=== PATIENT | female | born 1955 | race Caucasian/White ===

== ENCOUNTER 2019-02-20 02:12 | Inpatient (IN) | payer OTHER ==
[~2019-02-20] VITALS: Ht 162.6 cm; Wt 48.5 kg
--- NOTE | 2019-02-20 02:15 | NUR ---
PT BIB [facility] TO ER BED 4
[2019-02-20] MEDS ORDERED: fentaNYL 0.05 MG/ML VIAL IVP ONE (02:20)
[2019-02-20] MEDS ORDERED: NACL 0.9% 1,000 ML IV ONE (02:20)
[2019-02-20 02:33] VITALS: BP 214/82
[2019-02-20 02:38] LABS: BASOPHILS # (AUTO) 0.1 K/uL (0.00-0.22); BASOPHILS % (AUTO) 0.9 % (0.0-2.0); EOSINOPHILS # (AUTO) 0.4 K/uL (0-0.4); EOSINOPHILS % (AUTO) 4.2 % (0.0-4.0); HEMATOCRIT 40.9 % (36-48); HEMOGLOBIN 14.1 g/dL (12.0-16.0); LYMPHOCYTES # (AUTO) 2.4 K/uL (2.5-16.5); LYMPHOCYTES % (AUTO) 27.4 % (20.5-51.1); MEAN CORPUSCULAR HEMOGLOBIN 35 pg (27-31); MEAN CORPUSCULAR HGB CONC 34 g/dL (33-37); MEAN CORPUSCULAR VOLUME 100.3 fL (80-94); MONOCYTES # (AUTO) 0.6 K/uL (0.8-1.0); MONOCYTES % (AUTO) 6.4 % (1.7-9.3); NEUTROPHILS # (AUTO) 5.3 K/uL (1.8-7.7); NEUTROPHILS % (AUTO) 61.1 % (42.2-75.2); PLATELET COUNT (AUTO) 227 K/uL (140-450); RED BLOOD CELL COUNT(AUTO) 4.07 MIL/uL (4.20-5.40); RED CELL DISTRIBUTION WIDTH 12.4 % (11.6-13.7); WHITE BLOOD COUNT (AUTO) 8.7 K/uL (4.8-10.8)
--- NOTE | 2019-02-20 02:40 | NUR ---
ASSESSMENT COMPLETED. PATIENT LAYING IN BED, GIVEN BLANKETS. BED IN LOW LOCKED POSITON WITH SIDE RAILS X2. LIGHTS DIMMED PER PATIENT REQUEST.
[2019-02-20 02:48] LABS: ANION GAP 13.2 (8-16); CARBON DIOXIDE 32.4 mmol/L (21-32); POTASSIUM 3.6 mmol/L (3.5-5.1)
[2019-02-20 02:49] LABS: CREATININE 1.3 mg/dL (0.6-1.3)
[2019-02-20 03:06] LABS: CREATINE KINASE MB 0.3 ng/mL (0-3.6)
[2019-02-20 03:07] LABS: ALBUMIN 4.6 g/dL (3.4-5.0); TOTAL BILIRUBIN 0.7 mg/dL (0.0-1.0)
[2019-02-20] MEDS ORDERED: MORPHINE SULFATE 4 MG/ML SYR IVP ONE (03:45)
--- NOTE | 2019-02-20 04:00 | NUR ---
PATIENT ON BED CANO, GAVE URINE SAMPLE.
--- NOTE | 2019-02-20 04:43 | NUR ---
PATIENT STATES IMPROVED PAIN.
--- NOTE | 2019-02-20 05:26 | NUR ---
Sharif yeboah in [facility] - 02/20/19 at 0714 by FINA PATIENT UP FOR D/C WILL AWAIT FOR SOCIAL WORK TO HELP GET PATIENT HOME.
--- NOTE | 2019-02-20 06:15 | NUR ---
patient complaining for more leg pain and asked to speak with the doctor. Dr. Currie informed.
--- NOTE | 2019-02-20 06:23 | NUR ---
called to check up on patient. He states he will call their before and after school daycare worker and the before and after school daycare worker will pick remover patient at 09:00.
[2019-02-20] MEDS ORDERED: HYDROcodone/APAP 7.5/325 MG 1 TAB PO PRN (06:30)
[2019-02-20] MEDS ORDERED: ACETAMINOPHEN 325 MG TAB PO PRN (06:30)
[2019-02-20] MEDS ORDERED: DIAZEPAM 5 MG TAB PO ONE (06:30)
[2019-02-20] MEDS ORDERED: ONDANSETRON 4 MG/2 ML VIAL IVP PRN (06:30)
--- NOTE | 2019-02-20 06:30 | NUR ---
DR ZHANG AT BEDSIDE.
--- NOTE | 2019-02-20 07:14 | NUR ---
REPORT GIVEN TO MELCHOR. Addendum: 02/20/19 at 0716 by [facility] RECEIVED REPORT FROM ARELI WALKER. PATIENT AAOX4. DENIES PAIN AT THIS TIME. BP 165/89 AT THIS TIME.
--- NOTE | 2019-02-20 07:45 | NUR ---
RECEIVED REPORT FROM ER NURSE JUSTEN. PATIENT CAME VIA GURNEY, ON ROOM AIR, AAOX4. PATIENT IS ON MEDSURG, FULL CODE, IV TO L AC 20G. ADMITTED FROM HOME WITH CC OF NEUROPATHY PAIN TO BILATERAL UPPER AND LOWER EXTREMITIES. PATIENT HAS NO SIGNS OF RESPIRATORY DISTRESS. ON FALL RISK PRECAUTIONS, YELLOW WRISTBAND APPLIED, SIGN POSTED AT DOOR, YELLOW SOCKS APPLIED. OBTAINED MRSA SWAB OF THE NARES. WILL REVIEW PLAN OF CARE FOR THE DAY.
--- NOTE | 2019-02-20 07:48 | NUR ---
Patient will be admitted to care of DR MIX. Admited to MS. Will go to room 112A. Belongings list completed. Report to ALEX WALKER.
[2019-02-20 08:00] VITALS: BP 176/67
[2019-02-20 08:29] LABS: PROTHROMBIN TIME 10.2 secs (10.8-13.4)
--- NOTE | 2019-02-20 08:44 | NUR ---
PATIENT HAS BEEN SCREENED AND CATEGORIZED HIGH NUTRITION RISK. PATIENT WILL BE SEEN WITHIN 1-2 DAYS OF ADMISSION. 02/20/19-02/21/[address]
[2019-02-20] MEDS: DOCUSATE SODIUM 100 MG GELCAP PO SCH ×2 (09:00→21:27)
--- NOTE | 2019-02-20 09:03 | NUR ---
DC PLANNING 63 YRS OLD FEMALE PATIENT ADMITTED FROM HOME WITH A DX OF FAILURE TO THRIVE, GENERALIZE WEAKNESS PT HAS NO MEDICAL HX REPORTED. ADMINISTERED IVF, MORPHINE FOR PAIN. DC PLAN HOME HEALTH VS SNF PER PATIENT CHOICE. CM TO FOLLOW. Addendum: 02/20/19 at 1443 by Maribel Baxter CM DC PLANNING RECEIVED A CALL FROM GAETANO CM [employer] PT INSURANCE IS MANAGED BY [facility] AND CONTRACTED WITH [facility] . CALLED DR HERNANDEZ NOTIFIED THAT THE CARE HAS TO BE TRANSFERRED TO HIM FROM DR MIX'S CARE BECAUSE OF INSURANCE. DR HERNANDEZ ACCEPTED PT AND WILL CONTINUE THE CARE. CM TO F/U Addendum: 02/21/19 at 1129 by Maribel Baxter CM DC PLANNING: ADMITTING DR CHRISTOPHER TO DR HERNANDEZ PER INSURANCE [employer] . WAITING FOR PSYCHIATRY CONSULT DR ANISA'S RECOMMENDATION FOR PLACEMENT. PER RN NOTES NO AGITATION OR RESTLESSNESS DURING THE NIGHT. CM TO FOLLOW
[2019-02-20 09:39] LABS: FREE T4 (FREE THYROXINE) 1.25 ng/dL (0.76-1.46); MAGNESIUM 2.1 mg/dL (1.8-2.4); PHOSPHORUS 3.9 mg/dL (2.5-4.9); THYROID STIMULATING HORMONE 1.76 uIU/mL (0.34-3.74)
--- NOTE | 2019-02-20 10:00 | NUR ---
BEGAN NEXT INFUSION OF VANCOMYCIN. FAMILY MEMBERS AT BEDSIDE. FAMILY MEMBERS ARE ASKING ABOUT PLAN OF CARE. GAVE WHAT INFORMATION I WAS ABLE TO GIVE. Addendum: 02/20/19 at 1117 by Teresita Queen RN INCORRECT PATIENT. DISREGARD NOTE
[2019-02-20] MEDS ORDERED: ASCO500T45 PO (10:35)
[2019-02-20] MEDS ORDERED: MV-M1TAB52 PO (10:35)
[2019-02-20] MEDS ORDERED: MSCON30 PO (10:35)
[2019-02-20] MEDS ORDERED: ZINC220C12 PO (10:35)
[2019-02-20] MEDS ORDERED: LINA5TAB PO (10:35)
[2019-02-20] MEDS ORDERED: ALLO100T21 PO (10:35)
[2019-02-20] MEDS ORDERED: LIPA1CAP PO (10:35)
[2019-02-20] MEDS ORDERED: MAGN240P PO (10:35)
[2019-02-20] MEDS ORDERED: CHOL100013 PO (10:35)
[2019-02-20] MEDS ORDERED: OMEP20TC12 PO (10:35)
[2019-02-20] MEDS ORDERED: LACT1CAP94 PO (10:35)
[2019-02-20] MEDS ORDERED: TRAZ-345 PO (10:35)
[2019-02-20] MEDS ORDERED: [UNRECOGNIZED DRUG - CODE] PO (10:35)
[2019-02-20] MEDS ORDERED: LISI10TA11 PO (10:35)
[2019-02-20] MEDS ORDERED: OMEG1CAP21 PO (10:35)
[2019-02-20] MEDS ORDERED: FERR-15 PO (10:35)
[2019-02-20] MEDS ORDERED: MORPHINE TAB ER 30 MG TABER PO PRN ×2 (10:40→11:15)
--- NOTE | 2019-02-20 10:46 | NUR ---
Restrictive Preparation Operator Note: Basic Screen: Yes High Risk DC Screen [place]: PRAVEEN Urrutia Relationship: Pre-Admission Living Arrangements: Lives with Other Prior ADL Needs Assistance Current Home Health Name/Tel: N/A Current DME/02 Name/Tel: [employer] Current Hospice Name/Tel: N/A Current Dialysis Name/Tel: N/A Healthcare Decision Maker: Patient Advance Directive No - REFUSED Patient/Family Have Educational Needs No Information Taught: Advance Directive Community Resources Person Taught: Patient Teaching Tools: Community Resources Verbal Participation Level: Active Refused Evaluation: Verbalizes Understanding Needs Additional Education: No Discipline: Case Mgt/Social Svcs Tentative Discharge Plan/Destination: No Needs Identified Will require assistance post discharge: No Referred to Vision Impaired Teacher: No Tentative Discharge Plan Summary: Patient is a 63-year-old female admitted for failure to thrive and general weakness. Patient has was unable to provide PMHX. Patient was admitted from home. SW met with patient at bedside to verify demographics and address concerns of self-neglect. Patient stated she has a caregiver provided by the [facility] named Samantha who provides care frmo [phone]. Patient stated that Samantha provides adequate care for her but patient does not allow for patient to assist with hygeine. 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 Patient stated that she was mostly independent with ADLs, but receives assistance with cooking and cleaning. Patient states that she has a wheelchair that she uses minimally when ambulating too far. SW asked probing questions regarding the care that she receives, and patient reiterated that her hygeine is something that she cares for herself and she has not been feeling well to bathe. Patient stated that caregiver is able to assist her, but she refuses. SW provided home care resources to patient but patient stated she is happy with her care from her current caregiver. SW offered education on advanced directive but patient refused. Patient denies mental health history and substance abuse history. Patient's tentative plan after discharge is to return home. No further needs identified. Signature: FELICE Bullard Date: Feb 20, 2019 Time: 10:44
[2019-02-20 10:52] LABS: BARBITURATE, URINE NEGATIVE ng/ml (NEG <=200); BENZODIAZEPINE, URINE NEGATIVE ng/mL (NEG <=200); CANNABINOID, URINE NEGATIVE ng/mL (NEG <=50); COCAINE, URINE NEGATIVE ng/mL (NEG <=300); OPIATE, URINE POSITIVE ng/mL (NEG <=2000); PHENCYCLIDINE SCREEN,URINE NEGATIVE ng/mL (NEG <=25)
[2019-02-20 11:10] LABS: APPEARANCE,URINE CLEAR (CLEAR); BILIRUBIN,URINE NEGATIVE (NEGATIVE); BLOOD, URINE NEGATIVE (NEGATIVE); COLOR,URINE YELLOW (YELLOW); LEUKOCYTE ESTERASE ,URINE NEGATIVE (NEGATIVE); NITRITE, URINE NEGATIVE (NEGATIVE); PH,URINE 7.5 (5.0-9.0); UGLUCOSE NEGATIVE (NEGATIVE)
--- NOTE | 2019-02-20 11:12 | NUR ---
PER PATIENTS FAMILY AND AGREEANCE WITH DR HERNANDEZ, THEY WOULD LIKE MYRIAM PER OUR SLIDING SCALE TO BE GIVEN WITH LANTUS ON SCHEDULED LANTUS DOSE. Addendum: 02/20/19 at 1118 by Teresita Queen RN INCORRECT PATIENT. DISREGARD NOTE
[2019-02-20] MEDS: NACL 0.9% 1,000 ML IV SCH ×2 (11:14→22:11)
[2019-02-20] MEDS ORDERED: INSULIN LISPRO SLIDING SCALE 100 UNITS/ML VIAL SUBQ PRN (11:55)
[2019-02-20] MEDS ORDERED: DEXTROSE 50% 50 ML SYR IVP PRN (11:55)
[2019-02-20] MEDS ORDERED: LIPASE PO SCH (12:00)
[2019-02-20] MEDS ORDERED: PROTEASE PO SCH (12:00)
[2019-02-20] MEDS ORDERED: AMYLASE PO SCH (12:00)
[2019-02-20] MEDS ORDERED: LISINOPRIL 10 MG TAB PO SCH (12:00)
[2019-02-20 12:28] LABS: RBC,URINE 0 /HPF (0-5); WBC,URINE 0-5 /HPF (0-5)
--- NOTE | 2019-02-20 12:41 | NUR ---
ADMINISTERED LISINOPRIL PO. PATIENT TOLERATED WELL. PATIENT IS USING BEDPAN TO VOID. EATING BREAKFAST, NO COMPLAINTS AT THIS TIME.
--- NOTE | 2019-02-20 14:44 | NUR ---
PER FNS, PATIENT IS RECOMMENDED TO HAVE GLUCERNA 1.2 TID. ORDER PLACED IN [facility].
[2019-02-20 16:00] VITALS: BP 175/80
--- NOTE | 2019-02-20 16:00 | NUR ---
PATIENT USING BEDSIDE COMMODE. NO COMPLAINTS, NO SOB UPON TRANSFER
--- NOTE | 2019-02-20 16:19 | NUR ---
BLOOD SUGAR OF 126. NO ACTION NEEDED
[2019-02-20] MEDS: BLOOD GLUCOSE MONITORING 1 DEV DEV FS SCH ×2 (16:39→21:53)
--- NOTE | 2019-02-20 16:45 | NUR ---
02/20/19 RD INITIAL ASSESSMENT COMPLETED PLEASE REFER TO NUTRITION ASSESSMENT UNDER CARE ACTIVITY FOR ESTIMATED NUTRITIONAL NEEDS. 1. RECOMMEND CCHO 60GM DIET AND GLUCERNA TID TOLERATED 2. RD PROVIDED UNDERWEIGHT/MALNUTRITION EDUCATION. PT ACCEPTED 3. ENCOURAGED PT TO INCREASE PO INTAKE 4. RD TO FOLLOW-UP 2-3 DAYS, HIGH RISK PJ AL, RD
[2019-02-20] MEDS: MORPHINE 30 MG PO PRN (17:00)
[2019-02-20] MEDS: PANCRELIPASE PO SCH (17:01)
--- NOTE | 2019-02-20 17:01 | NUR ---
ADMINISTERED MORPHINE 30MG PO IR PRN FOR BILAT EXTREMITY PAIN
[2019-02-20] MEDS ORDERED: DONE5TAB6 PO (17:32)
--- NOTE | 2019-02-20 17:33 | NUR ---
WAS INFORMED BY PRAVEEN THAT PATIENT TAKES DONAPEZIL 5MG DAILY. PUT IT IN MEDICATION RECONCILIATION. WILL PAGE DR HERNANDEZ TO INFORM HIM.
--- NOTE | 2019-02-20 19:28 | NUR ---
RECIEVED PT AAOX4 , NID - O2 SAT WNL . IV SITE INTACT AND PATENT , DENIES ANY PAIN AT THIS TIME , ON BEDSIDE COMMODE . PLAN OF CARE DISCUSSED AND VERBALIZED UNDERSTANDING- CALL LIGHT WITHIN REACH - REMINDS HER TO USE OF CALL LOGHT WHENEVER SHE NEEDS HELP , ON SAFETY / FALL PRECAUTION PROTOCOL - BED ALARM ON WILL CONT. TO MONITOR.
[2019-02-20] MEDS ORDERED: ASCORBIC ACID 500 MG TAB PO SCH (21:00)
[2019-02-20] MEDS: MORPHINE TAB ER 30 MG TABER PO SCH (21:00)
[2019-02-20] MEDS ORDERED: DONEPEZIL 10 MG TAB PO SCH (21:00)
[2019-02-20] MEDS ORDERED: ZINC SULF 220 MG CAP PO SCH (21:00)
[2019-02-20] MEDS ORDERED: traZODone 50 MG TAB PO SCH (21:00)
[2019-02-20] MEDS: MAGNESIUM OXIDE 400 MG TAB PO SCH (21:27)
[2019-02-20] MEDS: CHOLECALCIFEROL 1,000 IU TAB PO SCH (21:27)
--- NOTE | 2019-02-20 22:00 | NUR ---
MADE ROUNDS , NO COMPLAIN MADE AT THIS TIME - CALL LIGHT WITHIN REACH.
[2019-02-21] VITALS: BP 130/70
--- NOTE | 2019-02-21 | NUR ---
MADE ROUNDS , NO S/SXS OF ACUTE DISTRESS NOTED AT THIS TIME.
--- NOTE | 2019-02-21 01:31 | NUR ---
SLEEPING . CHEST RISE AND FALL EQUALLY . CALL LIGHT WITHIN REACH . IVF - INFUSING WELL.
--- NOTE | 2019-02-21 04:00 | NUR ---
MADE ROUNDS , NO COMPLAIN MADE AT THIS TIME. VOIDED FREELY /BEDSIDE COMMODE.
[2019-02-21] MEDS: MORPHINE 30 MG PO PRN (05:32)
[2019-02-21] MEDS: NACL 0.9% 1,000 ML IV SCH (05:46)
[2019-02-21] MEDS: BLOOD GLUCOSE MONITORING 1 DEV DEV FS SCH ×2 (05:46→11:39)
[2019-02-21 06:08] LABS: FOLIC ACID > 20.00 ng/mL (>3.0)
--- NOTE | 2019-02-21 06:08 | NUR ---
MADE ROUNDS , AWAKE , COMFORTABLY RESTING ON BED , SHE SAID SHE WANTS TO TALK PSYCHE DOCTOR THIS AM. -WILL ENDORSE TO AM SHIFT.
--- NOTE | 2019-02-21 07:05 | NUR ---
RECEIVED REPORT FROM NIGHT RN. PATIENT IS FULL CODE, NKA. CURRENTLY SLEEPING, EASILY AROUSABLE, VISIBLE CHEST RISE AND FALL. PATIENT HAS A L AC 20G WITH NS INFUSING AT 85ML/HR. PATIENT IS ON ROOM AIR. WILL REVIEW AND CONTINUE WITH PLAN OF CARE FOR THE DAY.
--- NOTE | 2019-02-21 07:05 | NUR ---
ENDORSED TO AM SHIFT FOR CONT. OF CARE . STABLE CONDITION,
[2019-02-21 07:07] LABS: ANION GAP 12.5 (8-16); CARBON DIOXIDE 28.8 mmol/L (21-32); CREATININE 1.1 mg/dL (0.6-1.3); POTASSIUM 3.3 mmol/L (3.5-5.1)
[2019-02-21 07:08] LABS: BASOPHILS # (AUTO) 0.1 K/uL (0.00-0.22); EOSINOPHILS # (AUTO) 0.3 K/uL (0-0.4); EOSINOPHILS % (AUTO) 4.4 % (0.0-4.0); HEMATOCRIT 36.3 % (36-48); HEMOGLOBIN 12.3 g/dL (12.0-16.0); LYMPHOCYTES # (AUTO) 2.3 K/uL (2.5-16.5); LYMPHOCYTES % (AUTO) 30.2 % (20.5-51.1); MEAN CORPUSCULAR HEMOGLOBIN 34 pg (27-31); MEAN CORPUSCULAR HGB CONC 34 g/dL (33-37); MEAN CORPUSCULAR VOLUME 100.6 fL (80-94); MONOCYTES # (AUTO) 0.5 K/uL (0.8-1.0); MONOCYTES % (AUTO) 6.2 % (1.7-9.3); NEUTROPHILS # (AUTO) 4.5 K/uL (1.8-7.7); NEUTROPHILS % (AUTO) 58.2 % (42.2-75.2); PLATELET COUNT (AUTO) 197 K/uL (140-450); RED BLOOD CELL COUNT(AUTO) 3.61 MIL/uL (4.20-5.40); RED CELL DISTRIBUTION WIDTH 12.6 % (11.6-13.7); WHITE BLOOD COUNT (AUTO) 7.7 K/uL (4.8-10.8)
[2019-02-21 07:17] LABS: MAGNESIUM 2.1 mg/dL (1.8-2.4); PHOSPHORUS 3.2 mg/dL (2.5-4.9)
[2019-02-21 07:58] LABS: CHOL/HDL RATIO 5.1 (1-4.5)
[2019-02-21 08:00] VITALS: BP 175/72
[2019-02-21] MEDS: PANCRELIPASE PO SCH ×2 (08:00→11:39)
[2019-02-21] MEDS ORDERED: LISINOPRIL 10 MG TAB PO SCH (09:00)
[2019-02-21] MEDS ORDERED: OMEGA PO SCH (09:00)
[2019-02-21] MEDS ORDERED: FERROUS SULFATE 325 MG TABEC PO SCH (09:00)
[2019-02-21] MEDS ORDERED: DHA PO SCH (09:00)
[2019-02-21] MEDS ORDERED: VIT K PO SCH (09:00)
[2019-02-21] MEDS ORDERED: FOLIC ACID PO SCH (09:00)
[2019-02-21] MEDS ORDERED: FISH OIL PO SCH ×2 (09:00)
[2019-02-21] MEDS ORDERED: MULTIVITAMIN PO SCH (09:00)
[2019-02-21] MEDS ORDERED: PANTOPRAZOLE 40 MG TABEC PO SCH (09:00)
[2019-02-21] MEDS ORDERED: [UNRECOGNIZED DRUG - OTHER] PO SCH (09:00)
[2019-02-21] MEDS ORDERED: NON-FORMULARY ITEM (Linagliptin (Tradjenta) 1 TAB) PO SCH (09:00)
[2019-02-21] MEDS ORDERED: MV MN PO SCH (09:00)
[2019-02-21] MEDS ORDERED: ALLOPURINOL 100 MG TAB PO SCH (09:00)
[2019-02-21] MEDS ORDERED: TRADJENTA 5 MG PO SCH (09:00)
[2019-02-21] MEDS ORDERED: CALCIUM PO SCH (09:00)
[2019-02-21] MEDS ORDERED: EPA PO SCH (09:00)
[2019-02-21] MEDS ORDERED: LACTOBACILLUS RHAMNOSUS GG 1 EACH CAP PO SCH (09:00)
[2019-02-21] MEDS ORDERED: [UNRECOGNIZED DRUG - OTHER] PO SCH (09:00)
--- NOTE | 2019-02-21 10:20 | NUR ---
ADMINISTERED MORNING MEDICATION PO. PATIENT TOLERATED WELL.
[2019-02-21] MEDS: DOCUSATE SODIUM 100 MG GELCAP PO SCH (10:28)
[2019-02-21] MEDS: CHOLECALCIFEROL 1,000 IU TAB PO SCH (10:29)
[2019-02-21] MEDS: MAGNESIUM OXIDE 400 MG TAB PO SCH (10:29)
[2019-02-21] MEDS: MORPHINE TAB ER 30 MG TABER PO SCH (10:31)
--- NOTE | 2019-02-21 11:39 | NUR ---
BLOOD SUGAR OF 113. NO ACTION NEEDED.
--- NOTE | 2019-02-21 14:18 | NUR ---
PATIENT IS BECOMING AGITATED AND REQUESTING TO LEAVE. INFORMED CHARGE NURSE. STATED SHE WILL INFORM DR HERNANDEZ.
--- NOTE | 2019-02-21 16:20 | NUR ---
REMOVED PATIENTS IV LINE, CANNULA INTACT. PATIENT SIGNED ALL DISCHARGE PAPERWORK.
--- NOTE | 2019-02-21 17:04 | NUR ---
PATIENT HAS BEEN DISCHARGED TO HOME. IV LINE REMOVED, CANNULA INTACT. WRISTBANDS HAVE BEEN REMOVED.
== END 2019-02-21 17:05 | disposition home or self-care (01) | DRG 640 ==
LOC: MED 02:12 → MTU 06:34
PROVIDERS: ADMIT Internal Medicine; ATTEND Internal Medicine
DX: E86.0 Dehydration (principal); G93.41 Metabolic encephalopathy; I16.0 Hypertensive urgency; K86.89 Other specified diseases of pancreas; E11.65 Type 2 diabetes mellitus with hyperglycemia; E11.40 Type 2 diabetes mellitus with diabetic neuropathy, unspecified; F17.210 Nicotine dependence, cigarettes, uncomplicated; K21.9 Gastro-esophageal reflux disease without esophagitis; R26.81 Unsteadiness on feet; G47.00 Insomnia, unspecified; F03.90 Unspecified dementia, unspecified severity, without behavioral disturbance, psychotic disturbance, mood disturbance, and anxiety
CPT/HCPCS: 36415; 71045; 80048; 80053; 80305; 81001; 82150; 82550; 82553; 82607; 82746; 82948; 83036; 83690; 83735; 83880; 84100; 84439; 84443; 84484; 85025; 85610; 85730; 87081; 93005; 96361; 96374; 96375; 97112; 97116; 97161-GP; 97530; 99285; J1815; J2270; J3010; J7030; Q0092

== ENCOUNTER 2019-12-15 14:43 | Emergency (ER) | payer OTHER, MEDICAID ==
[~2019-12-15] VITALS: Ht 154.9 cm; Wt 60.8 kg
[~2019-12-15 14:43] MED LIST: ALLO100T21 PO; ASCO500T95 PO; CHOL100013 PO; DONE5TAB6 PO; FERR-15 PO; LACT1CAP94 PO; LINA5TAB PO; LIPA1CAP PO; LISI10TA11 PO; MAGN240P PO; MSCON30 PO; MV-M1TAB52 PO; OMEG1CAP21 PO; OMEP20TC12 PO; TRAZ-345 PO; ZINC220C28 PO; [UNRECOGNIZED DRUG - CODE] PO
--- NOTE | 2019-12-15 14:43 | NUR ---
Patient BIBA BLS, transferred to bed 6. RN evaluating patient at bedside.
[2019-12-15 14:45] VITALS: BP 175/85
--- NOTE | 2019-12-15 15:08 | NUR ---
PATIENT TONYA FROM [facility] FOR SI AND "GRAVELY DISABLED", PATIENT WAS RECENTLY DIAGNOSED WITH DEMENTIA IN MAY 2019. PT DENIES ANY THOUGHTS OF SI/HI. . DENIES N/V/D; SKIN IS PINK/WARM/DRY; AAOX4 WITH EVEN AND STEADY GAIT; LUNGS CLEAR BL; HR EVEN AND REGULAR; PT DENIES ANY FEVER, CP, SOB, OR COUGH AT THIS TIME; PATIENT STATES PAIN OF 010/10 AT THIS TIME, RELATED TO HER NEUROPATHY; VSS; PATIENT POSITIONED FOR COMFORT; HOB ELEVATED; BEDRAILS UP X2; BED DOWN. ER MD MADE AWARE OF PT STATUS. PMH: CKD STAGE 3, RAAD DISEASE
[2019-12-15] MEDS ORDERED: NACL 0.9% 500 ML IV ONE (15:25)
--- NOTE | 2019-12-15 15:47 | NUR ---
PATIENT IS REFUSING TO HAVE LABS DRAWN AT THIS TIME, STATES SHE DOES NOT WANT ANYTHING DONE TO HER WHILE IN THE ER AND IS THREATENING TO WALK OUT OF ER. PATIENT REMINDED THAT SHE IS REQUIRED TO STAY IN ER UNTIL FURTHER EVALUATION.
--- NOTE | 2019-12-15 15:47 | NUR ---
PATIENT IS REFUSING EKG AT THIS TIME, MADE AWARE.
--- NOTE | 2019-12-15 15:50 | NUR ---
PATIENT BECOMING AGITATED AND STATING SHE WANTS TO LEAVE AND WILL WALK HOME. PT ADVISED SHE IS ON A PSYCHIATRIC HOLD AND MUST WAIT FOR THE PSYCHIATRIST TO EVALUATE THE PATIENT. PT AGREED TO WAIT FOR THE PSYCH DOCTOR.
--- NOTE | 2019-12-15 16:38 | NUR ---
Dr. Haynes is evaluating the patient at bedside.
--- NOTE | 2019-12-15 17:00 | NUR ---
LABS DRAWN AT BEDSIDE. PT SWABBED FOR COVID AND INFLUENZA
[2019-12-15 17:13] LABS: BASOPHILS % (AUTO) 0.5 % (0.0-2.0); EOSINOPHILS # (AUTO) 0.4 K/uL (0-0.4); EOSINOPHILS % (AUTO) 4.6 % (0.0-4.0); HEMATOCRIT 35.2 % (36-48); HEMOGLOBIN 12.3 g/dL (12.0-16.0); LYMPHOCYTES # (AUTO) 2.1 K/uL (2.5-16.5); LYMPHOCYTES % (AUTO) 23.8 % (20.5-51.1); MEAN CORPUSCULAR HEMOGLOBIN 34 pg (27-31); MEAN CORPUSCULAR HGB CONC 35 g/dL (33-37); MEAN CORPUSCULAR VOLUME 97.2 fL (80-94); MONOCYTES # (AUTO) 0.6 K/uL (0.8-1.0); MONOCYTES % (AUTO) 7.2 % (1.7-9.3); NEUTROPHILS # (AUTO) 5.7 K/uL (1.8-7.7); NEUTROPHILS % (AUTO) 63.9 % (42.2-75.2); PLATELET COUNT (AUTO) 172 K/uL (140-450); RED BLOOD CELL COUNT(AUTO) 3.62 MIL/uL (4.20-5.40); WHITE BLOOD COUNT (AUTO) 8.9 K/uL (4.8-10.8)
--- NOTE | 2019-12-15 17:37 | NUR ---
PT AMBULATED TO BATHROOM TO PROVIDE URINE SAMPLE. URINE SAMPLE GIVEN TO PORTFOLIO CONSULTANT
[2019-12-15 17:39] LABS: ALBUMIN 3.9 g/dL (3.4-5.0); ANION GAP 15.8 (8-16); ASPARTATE AMINOTRANSFERASE 23 U/L (15-37); CARBON DIOXIDE 26.3 mmol/L (21-32); CHLORIDE 104 mmol/L (98-107); CREATININE 1.4 mg/dL (0.6-1.3); GFR ARICAN-AMERICAN 48 mL/min (>90); GLUCOSE 127 mg/dL (74-106); POTASSIUM 4.1 mmol/L (3.5-5.1); SALICYLATE 7.8 mg/dL (2.8-20.0); SODIUM SERUM 142 mmol/L (136-145); TOTAL BILIRUBIN 0.4 mg/dL (0.0-1.0); UREA NITROGEN, BLOOD 41 mg/dL (7-18)
[2019-12-15 17:55] LABS: ACETAMINOPHEN < 0.5 ug/ml (10-30)
[2019-12-15 18:06] LABS: BARBITURATE, URINE NEGATIVE ng/ml (NEG <=200); BENZODIAZEPINE, URINE POSITIVE ng/mL (NEG <=200); CANNABINOID, URINE NEGATIVE ng/mL (NEG <=50); COCAINE, URINE NEGATIVE ng/mL (NEG <=300); OPIATE, URINE POSITIVE ng/mL (NEG <=2000); PHENCYCLIDINE SCREEN,URINE NEGATIVE ng/mL (NEG <=25)
--- NOTE | 2019-12-15 19:04 | NUR ---
Patient appears to be resting comfortably in bed. Vital Signs within normal limits. Respirations even and unlabored.
--- NOTE | 2019-12-15 19:14 | NUR ---
REPORT RECEIVED FROM AARON SINHA FOR CONTINUATION OF CARE.
--- NOTE | 2019-12-15 19:49 | NUR ---
pt sleeping in bed, visible rise and fall of chest, HOB elevated, bed locked and in lowest position,side rail x2 for pt safety. VSS, no acute distress noted at this time.
--- NOTE | 2019-12-15 19:59 | NUR ---
pt c/o of neuopathy pain at this time. Review pt at home medications - pt usually takes 30 mg morphine PO ER tablets for pain , ERMD made aware.
[2019-12-15] MEDS ORDERED: MORPHINE TAB ER 30 MG TABER PO ONE (20:00)
--- NOTE | 2019-12-15 21:04 | NUR ---
GAVE REPORT TO AARON RIVERA FROM [facility] ON PT STATUS . PER NICOLE, AUTHORIZATION TO SEND PT TO THEIR FACILITY AT 8 AM . NO ADDITIONAL REPORT PHONE CALL WILL BE NEEDED , ONLY [facility] REPORT FOR ETA OF TRANSPORTATION OF PT.
--- NOTE | 2019-12-15 21:16 | NUR ---
PT SLEEPING IN BED, VISIBLE RISE AND FALL OF CHEST . HOB ELEVATED, SIDE RAIL X2 , BED LOCKED AND IN LOWEST POSITION, RR EVEN AND UNLABORED. VSS.
--- NOTE | 2019-12-16 00:04 | NUR ---
PT SLEEPING IN BED IN LEFT LATERAL POSITION, HOB ELEVATED, SIDE RAIL X 2. VISIBLE RISE AND FALL OF CHEST. VSS .
--- NOTE | 2019-12-16 00:26 | NUR ---
PT AMBULATED TO RESTROOM W/ STEADY GAIT.
--- NOTE | 2019-12-16 00:35 | NUR ---
PT BLOOD PRESSURE 180/88 - PER PT AT HOME MEDICATION LIST , PT CAN TAKE LISINOPRIL 10MG FOR BP OVER 150 mmHg. ERMD MADE AWARE. PER ERMD - ADMINISTER PO 10 MG LISINOPRIL AT THIS TIME.
[2019-12-16] MEDS ORDERED: lisinopriL 20 MG TAB PO ONE (00:40)
--- NOTE | 2019-12-16 03:45 | NUR ---
PT STATES SHE WANTS TO SPEAK TO A DOCTOR. PT STATES SHE DOES NOT WANT TO BE HERE ANYMORE. PT INFORMED THAT SHE IS UNABLE TO LEAVE THE HOSPITAL AT THIS TIME. DASHAWND MADE AWARE OF PT STATUS.
--- NOTE | 2019-12-16 03:50 | NUR ---
ERMD AT BEDSIDE.
--- NOTE | 2019-12-16 04:01 | NUR ---
PT GIVEN PHONE TO SPEAK W/ AT THIS TIME.
--- NOTE | 2019-12-16 05:12 | NUR ---
pt ambulated to ER bed w/ steady gait.
--- NOTE | 2019-12-16 05:14 | NUR ---
PT RETURNED TO ER BED 6 W/ STEADY GAIT.
--- NOTE | 2019-12-16 07:01 | NUR ---
PT SLEEPING IN BED, LOCKED AND IN LOWEST POSITION ,HOB ELEVATED, SIDE RAIL X2 FOR PT SAFETY. VISIBLE RISE AND FALL OF CHEST, RR EVEN AND UNLABORED. VSS. NO ACUTE DISTRESS NOTED AT THIS TIME.
--- NOTE | 2019-12-16 07:11 | NUR ---
REPORT GIVEN TO AARON POZO FOR TRANSFER OF CARE.
--- NOTE | 2019-12-16 07:12 | NUR ---
Received report from AARON Franco. Transfer of care at this time
--- NOTE | 2019-12-16 07:31 | NUR ---
[facility] at bedside for patient transport.
[2019-12-16 07:35] VITALS: BP 142/68
--- NOTE | 2019-12-16 07:36 | NUR ---
Patient to be transferred to [facility]. Is being transferred due to Higher level of care Receiving facility has accepting physician and available space. ER physician has signed transfer form. Patient or responsible republican has agreed to transfer and signed form. Patient belongings inventoried and will be sent with patient. Copy of nursing notes, lab reports, EKG, Physicians Orders and X-rays to be sent with patient. Report called to AARON Wolf at receiving facility. [facility] ambulance service has been called for transfer.
--- NOTE | 2019-12-16 07:42 | NUR ---
Report given to AARON Longo at [facility]
== END 2019-12-16 07:36 ==
LOC: MED 14:43
DX: F79 Unspecified intellectual disabilities (principal); R45.851 Suicidal ideations; E11.9 Type 2 diabetes mellitus without complications; F03.90 Unspecified dementia, unspecified severity, without behavioral disturbance, psychotic disturbance, mood disturbance, and anxiety; Z03.818 Encounter for observation for suspected exposure to other biological agents ruled out; Z88.1 Allergy status to other antibiotic agents; Z79.899 Other long term (current) drug therapy
CPT/HCPCS: 36415; 80053; 80305; 85025; 87426; 93005; 99285; G0480; G0482; U0003